=== PATIENT | female | born 1965 | race Caucasian/White ===

== ENCOUNTER → 2018-09-27 | Outpatient (CLI) | payer OTHER | LOC: M.RAD 07:04 → M.ULTRA 07:30 | DX: Z12.31 Encounter for screening mammogram for malignant neoplasm of breast (principal); N93.9 Abnormal uterine and vaginal bleeding, unspecified; N85.8 Other specified noninflammatory disorders of uterus ==

== ENCOUNTER → 2019-07-26 | Outpatient (CLI) | payer OTHER ==
[~2019-07-26] MED LIST: IBUPROFEN 800800 M1 PO; NEXIUM40 MG PO; NORCO 5-325 TA1 EAC1 PO; SYNTHROID100 MC1 PO
--- NOTE | 2019-07-26 17:18 | CARDNUC ---
[place] [address] CARDIAC NUCLEAR IMAGING REPORT Name: IDA SANDRA Room: [facility]#: [id number] Admission: 07/26/19 Attend Phys: Janee Castro DO Discharge: Date of : 65 Date of Service: 07/26/19 1718 Report #: [id number] THIS REPORT FOR: //name// APPROVED REPORT Study performed: 07/26/2019 07:45:00 Indication: Chest pain, hypertension Patient Location: Out-Patient Stress Tech: Amira Skelton Stress Nurse: Sumi Low RN Ht: 5 ft 1 in Wt: 161 lbs BSA: 1.72 m2 BMI: 30.41 Medical History Medical History: hyperlipidemia, questionalbe hypertension Medications: no cardiac meds Allergies: nkda Cardiac Risk Factors: age, hyperlipidemia, ?htn, family hx Previous Cardiac Procedures: none Exercise History: Physically active Resting Data Rest SPECT myocardial perfusion imaging was performed in supine position 30 minutes following the intravenous injection of 11.7 mCi of Tc-99m Sestamibi. Time of rest injection: 08:10 The images were gated to evaluate regional wall motion and calculate left ventricular ejection fraction. Administration Route: IV Administration Site: Left Hand Exercise Stress At peak stress, the patient was injected intravenously with 36.0mCi of Tc-99m Sestamibi. Time of stress injection: 09:50 Administration Route: IV Administration Site: Left Hand Heart Rate at time of stress injection: 156 bpm. Patient continued to exercise for 1 minute(s). Gated Stress SPECT was performed 30 minutes after stress injection. The images were gated to evaluate regional [place] [address] CARDIAC NUCLEAR IMAGING REPORT Name: IDA SANDRA Room: [facility]#: [id number] Admission: 07/26/19 Attend Phys: Janee Castro DO Discharge: Date of : 65 Date of Service: 07/26/19 1718 Report #: [id number] left ventricular ejection fraction. Prone imaging was performed. Stress Test Details Stress Test: Exercise stress testing was performed using a James protocol. HR Max Heart Rate (APMHR): 166 bpm Resting HR: 72 bpm Target HR (85% APMHR): 141 bpm Max HR Achieved: 156 bpm % of APMHR: 93 Recovery HR: 101 bpm BP Resting BP: 129/83 mmHg Max BP: 193/69 mmHg Recovery BP: 163/97 mmHg ECG Resting ECG: Sinus Rhythm Stress ECG: Sinus Tachycardia ST Change: None Arrhythmia: None Recovery ECG: Sinus Rhythm Recovery ST Change: None Recovery Arrhythmia: None Clinical Reason for Termination: Fatigue Exercise duration: 8 min 7 sec Exercise capacity: 10. METs Overall Exercise Capacity for Age: 16 Functional Aerobic Impairment 94% The patient tolerated standard James protocol exercise without significant cardiac symptoms. Stress ECG Conclusion The baseline 12-lead EKG shows sinus rhythm with no significant ST or T-wave abnormalities. EKGs during and post exercise stress show sinus rhythm and sinus tachycardia with no significant ST or T wave changes when compared to baseline. There were no stress-induced arrhythmias. Study Quality Study: [place] [address] CARDIAC NUCLEAR IMAGING REPORT Name: IDA SANDRA Room: [facility]#: [id number] Admission: 07/26/19 Attend Phys: Janee Castro DO Discharge: Date of : 65 Date of Service: 07/26/19 1718 Report #: [id number] Post stress, the left ventricular ejection was 81%.. Perfusion Normal left ventricular perfusion. Wall Motion Normal left ventricular wall motion. Nuclear Conclusion ECG Findings: negative for ischemia Clinical Findings: negative for ischemia Nuclear Findings: negative for ischemia Exercise Capacity: normal Left Ventricular Function: normal Risk Study: low Myocardial perfusion images show no defect to suggest infarct or ischemia. Left ventricular systolic function is normal on gated studies. This is a low risk study. <Conclusion> The baseline 12-lead EKG shows sinus rhythm with no significant ST or T-wave abnormalities. EKGs during and post exercise stress show sinus rhythm and sinus tachycardia with no significant ST or T wave changes when compared to baseline. There were no stress-induced arrhythmias. <ELECTRONICALLY SIGNED> By: Rocco Gomez MD, FAC 07/26/191717 17 17 Rocco Gomez MD, FAC /INF
== END ==
LOC: M.NUC 07-17 16:11
DX: R07.89 Other chest pain (principal); I10 Essential (primary) hypertension; E78.5 Hyperlipidemia, unspecified; Z68.30 Body mass index [BMI] 30.0-30.9, adult

== ENCOUNTER 2019-07-30 12:40 | Emergency (ER) | payer OTHER ==
[~2019-07-30] VITALS: Ht 154.9 cm; Wt 72.6 kg
[2019-07-30] MEDS ORDERED: SYNTHROID100 MC1 PO (12:51)
[2019-07-30] MEDS ORDERED: NEXIUM40 MG PO (12:51)
[2019-07-30] MEDS ORDERED: IBUPROFEN 800800 M1 PO (14:34)
[2019-07-30] MEDS ORDERED: NORCO 5-325 TA1 EAC1 PO (14:34)
[2019-07-30 14:53] VITALS: BP 123/75
== END 2019-07-30 14:55 | disposition home or self-care (01) ==
LOC: M.ERS 12:40
DX: S52.591A Other fractures of lower end of right radius, initial encounter for closed fracture (principal); S80.212A Abrasion, left knee, initial encounter; K21.9 Gastro-esophageal reflux disease without esophagitis; E03.9 Hypothyroidism, unspecified; W18.39XA Other fall on same level, initial encounter; Y92.89 Other specified places as the place of occurrence of the external cause; Y93.89 Activity, other specified; Y99.8 Other external cause status

== ENCOUNTER → 2019-10-04 | Outpatient (CLI) | payer OTHER | LOC: M.RAD 15:00 | DX: Z12.31 Encounter for screening mammogram for malignant neoplasm of breast (principal) ==